=== PATIENT | female | born 1975 | race Hispanic/Latino ===

== ENCOUNTER 2017-07-17 15:10 | Emergency (ER) | payer OTHER ==
[2017-07-17] MEDS: PERCOCET 5MG/325MG TAB PO (15:47)
== END 2017-07-17 16:58 | disposition home or self-care (01) ==
LOC: M ED 15:10
DX: M23.91 Unspecified internal derangement of right knee (principal); F17.210 Nicotine dependence, cigarettes, uncomplicated
CPT/HCPCS: 73564

== ENCOUNTER → 2019-07-06 | Outpatient (CLI) | payer OTHER ==
[~2019-07-06] MED LIST: IBUP-1114 PO; PERC5TAB12 PO; diclofenac PO
--- NOTE | 2019-07-06 11:45 | REP ---
BILATERAL MAMMOGRAM AND BREAST ULTRASOUND: History if bilateral breast implants with change in shape of right breast with right breast pain. Bilateral mammogram performed in the MLO and CC projections, with implant displaced views also performed. There are no prior studies for comparison. There is mild scattered fibroglandular tissue bilaterally. No mass, architectural distortion, or clustered microcalcifications are seen. Bilateral breast implants are noted. The right breast implant demonstrates numerous radial folds and is mildly smaller in size than the left. There are a couple of radial folds of the left breast implant. There is no radiographic evidence of extracapsular rupture. Real-time sonographic evaluation of bilateral breast implants performed. No intracapsular or extracapsular rupture is noted. Both implants demonstrate areas of irregularity along the fibrous capsule. IMPRESSION: BIRADS 2: BI-RADS/ACR category 2 mammogram. Benign Findings. ACR 2 benign. No mass or clustered microcalcifications. Bilateral breast implants noted, with several radial folds of the right breast implant and a couple of radial folds of the left breast implant. There is no evidence of intracapsular or extracapsular rupture mammographically or sonographically, with areas of contour irregularity of both breast implants sonographically. This mammogram was interpreted with the aid of an FDA-approved computer-aided detection system. The patient states that she or he has not had a clinical breast exam in over a year. The patient letter being requested is M2. Electronically Signed by Igor Palumbo MD 07/06/2019 12:30 P
== END ==
LOC: M RAD 09:10
PROVIDERS: ATTEND Plastic Surgery Surgery of the Hand
DX: T85.44XA Capsular contracture of breast implant, initial encounter (principal); Y92.9 Unspecified place or not applicable; Y93.9 Activity, unspecified